=== PATIENT | male | born 1975 | race Two or more races ===

== ENCOUNTER 2017-11-09 11:13 | Emergency (ER) | payer OTHER ==
[~2017-11-09] VITALS: Ht 185.4 cm; Wt 81.6 kg
== END 2017-11-09 13:07 | disposition home or self-care (01) ==
LOC: ER 11:13
DX: S51.012A Laceration without foreign body of left elbow, initial encounter (principal); W54.0XXA Bitten by dog, initial encounter; Y93.89 Activity, other specified; Y92.89 Other specified places as the place of occurrence of the external cause; Y99.8 Other external cause status

== ENCOUNTER 2017-11-17 07:24 | Emergency (ER) | payer OTHER ==
[~2017-11-17] VITALS: Ht 185.4 cm; Wt 81.6 kg
[2017-11-17] MEDS ORDERED: KETO10TA2 PO (09:14)
[2017-11-17] MEDS ORDERED: NORFLEX100MG PO (09:14)
[2017-12-15] MEDS ORDERED: NORFLEX100MG PO (18:40)
== END 2017-11-17 09:16 | disposition home or self-care (01) ==
LOC: ER 07:24
DX: Z48.02 Encounter for removal of sutures (principal)